=== PATIENT | female | born 1980 | race Caucasian/White ===

== ENCOUNTER 2024-01-16 19:57 | Emergency (ER) | payer OTHER ==
[~2024-01-16] VITALS: Ht 167.6 cm; Wt 59.0 kg
[2024-01-16 20:38] LABS: BASOPHILS # (AUTO) 0.03 K/uL (0.00-0.20); BASOPHILS % (AUTO) 0.5 % (0.0-5.0); EOSINOPHILS # (AUTO) 0.09 K/uL (0.00-0.70); EOSINOPHILS % (AUTO) 1.6 % (0.0-8.0); HEMATOCRIT 39.4 % (36-48); IMMATURE GRANULOCYTE ABSOLUTE 0.01 K/uL (0-1); LYMPHOCYTES # (AUTO) 1.6 K/uL (1.0-4.8); MEAN CORPUSCULAR HEMOGLOBIN 28.4 pg (27.0-33.0); MEAN CORPUSCULAR VOLUME 88.7 fL (79-99); MONOCYTES # (AUTO) 0.9 K/uL (0.1-1.0); MONOCYTES % (AUTO) 15.4 % (3.0-13.0); NEUTROPHILS % (AUTO) 53.3 % (40.0-77.0); PLATELET COUNT (AUTO) 289 K/uL (130-400); RED BLOOD CELL COUNT(AUTO) 4.44 MIL/uL (4.00-5.50); WHITE BLOOD COUNT (AUTO) 5.6 K/uL (4.8-10.8)
[2024-01-16 20:46] LABS: CREATININE 0.8 mg/dL (0.5-1.0); POTASSIUM 3.9 mmol/L (3.5-5.1)
[2024-01-16] MEDS: ketOROlac 30MG VIAL (30MG/ML) IVP ONE (20:47)
[2024-01-16] MEDS: 0.9%NACL 1000ML 1,000 ML IV ONE (20:48)
[2024-01-16 20:52] LABS: APPEARANCE,URINE CLOUDY (CLEAR); BILIRUBIN,URINE NEGATIVE (NEGATIVE); COLOR,URINE YELLOW (YELLOW); GLUCOSE, URINE (UA) NEGATIVE (NEGATIVE); KETONES,URINE NEGATIVE (NEGATIVE); LEUKOCYTE ESTERASE ,URINE 250 Leu/uL (NEGATIVE); NITRATE,URINE NEGATIVE (NEGATIVE); OCCULT BLOOD,URINE NEGATIVE (NEGATIVE); PH,URINE 5.5 (5.0-8.0); PROTEIN,URINE NEGATIVE (NEGATIVE); UROBILINOGEN,URINE 0.2 mg/dL (0.2-1.0)
[2024-01-16 20:55] LABS: ADD UA MICROSCOPIC YES
[2024-01-16 20:56] LABS: HCG,QUALITATIVE URINE NEGATIVE (NEGATIVE)
[2024-01-16 21:01] LABS: BACTERIA,URINE RARE /HPF (None Seen); MUCUS,URINE RARE LPF (None Seen); OTHER CASTS, URINE 1 /LPF (None Seen); SQUAMOUS EPITHELIAL CELL,UR MANY /HPF (0-2)
[2024-01-16] MEDS ORDERED: IOHEXOL-350 75 ML VIAL IV ONE (21:01)
[2024-01-16] MEDS ORDERED: MAGN400O17 PO (21:35)
[2024-01-16] MEDS ORDERED: SIME180C61 PO (21:35)
[2024-01-16 22:11] VITALS: BP 128/75; PULSE 72; RESP 16; TEMP 98.6; O2SAT 98
== END 2024-01-16 22:27 | disposition home or self-care (01) ==
LOC: EDH 19:57
DX: K59.09 Other constipation (principal); R14.1 Gas pain; I10 Essential (primary) hypertension
CPT/HCPCS: 99285; 74177; 96374; 96361; 80048; 83690; 85025; 87086; 81001; 81025; 36415; J7030; J1885; Q9967